=== PATIENT | male | born 1975 | race Caucasian/White ===

== ENCOUNTER 2019-01-09 20:41 | Inpatient (IN) | payer OTHER ==
--- NOTE | 2019-01-09 20:54 | Emergency Department Report ---
Blank Doc - Documentation Documentation: 43-year-old male that presents with abdominal pain with nausea. This initial assessment/diagnostic orders/clinical plan/treatment(s) is/are subject to change based on patient's health status, clinical progression and re- assessment by fellow clinical providers in the ED. Further treatment and workup at subsequent clinical providers discretion. Patient/guardians urged not to elope from the ED as their condition may be serious if not clinically assessed and managed. Initial orders include: 1- Patient sent to [facility] for further evaluation and treatment 2- labs 3- UA
[2019-01-09 21:36] LABS: Basophils % (Auto) 0.2 % (0.0-1.8); Hematocrit 45.5 % (35.5-45.6); Hemoglobin 15.4 gm/dl (11.8-15.2); Lymphocytes % (Auto) 6.2 % (13.4-35.0); Mean Corpuscular HGB Conc 34 % (32-34); Mean Corpuscular Volume 94 fl (84-94); Monocytes # (Auto) 0.9 K/mm3 (0.0-0.8); Monocytes % (Auto) 5.2 % (0.0-7.3); Platelet Count 244 K/mm3 (140-440); Red Blood Count 4.86 M/mm3 (3.65-5.03)
[2019-01-09 21:46] LABS: Alanine Aminotransferase 71 units/L (7-56); BUN/Creatinine Ratio 8; Blood Urea Nitrogen 5 mg/dL (9-20); Calcium 8.4 mg/dL (8.4-10.2); Hemolysis Index 13
[2019-01-09] MEDS ORDERED: HYDROmorphone 1 MG/1 ML INJ ONE (22:28)
[2019-01-09] MEDS ORDERED: ONDANSETRON 4 MG/2 ML INJ ONE (22:28)
[2019-01-09] MEDS ORDERED: HYDROmorphone 1 MG/1 ML INJ IV ONE (22:29)
[2019-01-09] MEDS ORDERED: ONDANSETRON 4 MG/2 ML INJ IV ONE (22:30)
[2019-01-09] MEDS ORDERED: SODIUM CHLORIDE 0.9% 1000 ML 1,000 ML ONE (22:37)
[2019-01-09] MEDS ORDERED: SODIUM CHLORIDE 0.9% 1000 ML 1,000 ML IV ONE (22:38)
--- NOTE | 2019-01-09 22:39 | Emergency Department Report ---
ED Abdominal Pain HPI - General Chief Complaint: Abdominal Pain Stated Complaint: STOMACH PAIN Time Seen by Provider: 01/09/19 20:53 Source: patient Mode of arrival: Ambulatory Limitations: No Limitations - History of Present Illness Initial Comments: Patient is a 43-year-old male that presents to the emergency room with complaints of epigastric pain. Patient states the pain started a week ago. Patient states the pain is worsening.. Patient states he drinks daily. Patient states that he has had bouts of nausea without vomiting. Patient states the pain as a 10 out of 10. Patient states the pain is radiating to his umbilical region. Patient states he thinks his bouts of nausea or from drinking too much. Patient states his pain is worse with food and movement. Patient states his pain is better with rest. Patient denies fever and chills. Patient denies diarrhea. Patient denies blood in his vomitus. Patient denies blood in his stool. Patient denies dark or black stool MD Complaint: abdominal pain -: Sudden Location: epigastric Radiation: other (umbilical) Migration to: no migration Severity: severe Severity scale (0 -10): 9 Quality: stabbing Consistency: constant Improves With: rest Worsens With: eating, movement Context: other (regular alcohol use. ) Associated Symptoms: nausea. denies: vomiting, diarrhea, fever, chills, constipation, dysuria, hematemesis, hematochezia, melena, hematuria, anorexia, syncope Treatments Prior to Arrival: antacids - Related Data Allergies Allergy/AdvReac Type Severity Reaction Status Date / Time No Known Allergies Allergy Unverified 01/09/19 20:57 ED Review of Systems ROS: Stated complaint: STOMACH PAIN Other details as noted in HPI Constitutional: denies: chills, fever Eyes: denies: eye pain, eye discharge, vision change ENT: denies: ear pain, throat pain Respiratory: denies: cough, shortness of breath, wheezing Cardiovascular: denies: chest pain, palpitations Endocrine: no symptoms reported Gastrointestinal: abdominal pain, nausea. denies: vomiting, diarrhea Genitourinary: denies: urgency, dysuria Musculoskeletal: denies: back pain, joint swelling, arthralgia Skin: denies: rash, lesions Neurological: denies: headache, weakness, paresthesias Psychiatric: denies: anxiety, depression Hematological/Lymphatic: denies: easy bleeding, easy bruising ED Past Medical Hx - Past Medical History Previous Medical History?: No - Surgical History Past Surgical History?: No - Family History Family history: no significant - Social History Smoking Status: Current Some Day Smoker Substance Use Type: Alcohol, Cocaine ED Physical Exam - General Limitations: No Limitations General appearance: alert, in no apparent distress - Head Head exam: Present: atraumatic, normocephalic - Eye Eye exam: Present: normal appearance - ENT ENT exam: Present: mucous membranes moist - Neck Neck exam: Present: normal inspection - Respiratory Respiratory exam: Present: normal lung sounds bilaterally. Absent: respiratory distress, wheezes, rales - Cardiovascular Cardiovascular Exam: Present: regular rate, normal rhythm. Absent: systolic murmur, diastolic murmur, rubs, gallop - GI/Abdominal GI/Abdominal exam: Present: soft, tenderness (epigastric tenderness), normal bowel sounds - Rectal Rectal exam: Present: deferred - Extremities Exam Extremities exam: Present: normal inspection - Back Exam Back exam: Present: normal inspection - Neurological Exam Neurological exam: Present: alert, oriented X3 - Psychiatric Psychiatric exam: Present: normal affect, normal mood - Skin Skin exam: Present: warm, dry, intact, normal color. Absent: rash ED Course Vital Signs 01/09/19 01/09/19 01/09/19 20:45 20:49 20:55 Temperature 97.5 F L Pulse Rate 92 H 90 Respiratory 17 48 H 20 Rate Blood Pressure 119/79 Blood Pressure 106/68 [Right] O2 Sat by Pulse 98 99 99 Oximetry 01/09/19 01/10/19 01/10/19 22:23 00:10 02:20 Temperature 98.3 F Pulse Rate 97 H 111 H 102 H Respiratory 24 20 22 Rate Blood Pressure Blood Pressure 124/82 138/89 129/79 [Right] O2 Sat by Pulse 99 98 98 Oximetry - Reevaluation(s) Reevaluation #1: I discussed all results with patient. Discussed plan of care patient. Patient agrees with plan of care. Patient was admitted to the hospitalist service. 01/10/19 01:06 - Consultations Consultation #1: Gen. surgery paged. 01/10/19 00:35 I discussed case with Dr. Grayson and she recommends admission and nothing by mouth. Dr. Grayson states that they patient is going to the operating room and to have the patient admitted to the hospitalist service. 01/10/19 00:51 Consultation #2: Hospitalist consult for admission. Hospitalist to admit patient. 01/10/19 00:52 ED Medical Decision Making - Lab Data Result diagrams: 01/09/19 21:13 01/09/19 21:13 - EKG Data -: EKG Interpreted by Me EKG shows normal: sinus rhythm, axis, intervals, QRS complexes, ST-T waves Rate: tachycardia - Radiology Data Radiology results: report reviewed CT ABDOMEN AND PELVIS WITH IV CONTRAST INDICATION: abd pain. Epigastric pain COMPARISON: None available. TECHNIQUE: Axial CT images were obtained through the abdomen and pelvis after 100 mL IV contrast. All CT scans at this location are performed using CT dose reduction for ALARA by means of automated exposure control. FINDINGS -- ABDOMEN: Lung Bases: No acute abnormality. Liver: Fatty liver. Gallbladder: Normal. Bile Ducts: Normal. Pancreas: Normal. Spleen: Normal. Adrenals: Normal. Right Kidney and Proximal Ureter: Normal. Left Kidney and Proximal Ureter: Normal. Stomach and Bowel: Severe mucosal thickening of the distal gastric antrum with possible focal ulcer involving the first portion of the duodenum.. Lymph Nodes: No significant adenopathy. Aorta: No significant abnormality. IVC: Normal. Additional Findings: Moderate free air.. FINDINGS -- PELVIS: Urinary Bladder and Distal Ureters: Normal. Reproductive Organs: No acute abnormality. Appendix: Normal. Bowel: No acute abnormality. Free Fluid: Small. Lymph Nodes: No significant adenopathy. Additional Findings: None. Skeletal System: No acute abnormality. IMPRESSION: Perforated ulcer identified involving the distal gastric antrum/proximal d uodenal region with moderate free air and moderate surrounding gastritis. - Medical Decision Making Patient is a 43-year-old male that presents emergency room complaints of epigastric pain. Patient found to have a ruptured gastric ulcer with gastritis. Gen. surgery consultation and is taking the patient directly to the operating room. Hospitalist consulted for admission. Patient 7 unremarkable except for elevated LFTs and elevated WBC. Patient given fluids and antibiotics and placed on a Protonix drip and pain meds. Patient's pain controlled while in the ER. - Differential Diagnosis gastritis. Epigastric pain. Ruptured ulcer. Critical Care Time: Yes Critical care time in (mins) excluding proc time.: 45 Critical care attestation.: If time is entered above; I have spent that time in minutes in the direct care of this critically ill patient, excluding procedure time. Critical Care Time: 45 minutes ED Disposition Clinical Impression: Epigastric pain Perforated gastric ulcer Qualifiers: Gastric ulcer chronicity: acute Qualified Code(s): K25.1 - Acute gastric ulcer with perforation Gastritis Qualifiers: Gastritis type: alcoholic Chronicity: acute Gastritis bleeding: with bleeding Qualified Code(s): K29.21 - Alcoholic gastritis with bleeding Disposition: 09 OP ADMIT IP TO THIS HOSP Is pt being admited?: Yes Does the pt Need Aspirin: No Condition: Critical Time of Disposition: 01:07
--- NOTE | 2019-01-10 00:18 | Cat Scan Report ---
CT ABDOMEN AND PELVIS WITH IV CONTRAST INDICATION: abd pain. Epigastric pain COMPARISON: None available. TECHNIQUE: Axial CT images were obtained through the abdomen and pelvis after 100 mL IV contrast. All CT scans a t this location are performed using CT dose reduction for ALARA by means of automated exposure contro l. FINDINGS -- ABDOMEN: Lung Bases: No acute abnormality. Liver: Fatty liver. Gallbladder: Normal. Bile Ducts: Normal. Pancreas: Normal. Spleen: Normal. Adrenals: Normal. Right Kidney and Proximal Ureter: Normal. Left Kidney and Proximal Ureter: Normal. Stomach and Bowel: Severe mucosal thickening of the distal gastric antrum with possible focal ulcer i nvolving the first portion of the duodenum.. Lymph Nodes: No significant adenopathy. Aorta: No significant abnormality. IVC: Normal. Additional Findings: Moderate free air.. FINDINGS -- PELVIS: Urinary Bladder and Distal Ureters: Normal. Reproductive Organs: No acute abnormality. Appendix: Normal. Bowel: No acute abnormality. Free Fluid: Small. Lymph Nodes: No significant adenopathy. Additional Findings: None. Skeletal System: No acute abnormality. IMPRESSION: Perforated ulcer identified involving the distal gastric antrum/proximal duodenal region with moderat e free air and moderate surrounding gastritis. Signer Name: Mikael Storey MD Signed: 01/10/2019 12:13 AM Workstation Name: [employer]
[2019-01-10] MEDS ORDERED: PIPERACIL/TAZOBACTA 4.5/NS 100 4.5 GM/100 ML VIAL IV ONE (00:48)
[2019-01-10] MEDS ORDERED: PANTOPRAZOLE 80 MG in SODIUM CHLORIDE 0.9% 100 ML IV SCH (01:00)
[2019-01-10] MEDS ORDERED: LORazepam 2 MG/ML VIAL IV PRN ×3 (01:14→11:19)
[2019-01-10] MEDS ORDERED: SODIUM CHLORIDE 0.9% 1000 ML 1,000 ML IV SCH ×2 (01:15→01:30)
--- NOTE | 2019-01-10 01:17 | History and Physical Report ---
History of Present Illness Date of examination: 01/10/19 History of present illness: 43 year old man with history of alcohol abuse comes to emergency room for evaluation of abdominal pain that started 2 weeks ago. Pain is diffuse, dull, was intermittent but now constant, intensity 9/10, no radiation, cannot identified exacerbating factor. Admits to nausea, vomiting, decreased oral intake vomiting. Denies NSAID use, blood in stool, hematemesis. Last drink was today. Patient is being admitted for perforated ulcer Review Of Systems: Constitutional: no weight loss, fever, chills Ears, eyes, nose, mouth and throat: no nasal congestion, no nasal discharge, no sinus pressure, blurry vision, diplopia Neck: No neck pain or rigidity. Cardiovascular: No palpitations, chest pain Respiratory: No shortness of breath, cough Gastrointestinal: No hematochezia Genitourinary : no dysuria, frequency Musculoskeletal: no muscle ache , joint pain Integumentary: no rash, no pruritis Neurological: no parathesias, focal weakness Endocrine: no cold or heat intolerance, no polyuria or polydipsia Hematologic/Lymphatic: no easy bruising, no easy bleeding, no gland swelling Allergic/Immunologic: no urticaria, no angioedema. PAST MEDICAL HISTORY: alcohol abuse PAST SURGICAL HISTORY:finger SOCIAL HISTORY: Derinks 12 beers/day, +tobacco, +cocoaine FAMILY HISTORY: Hypertension Medications and Allergies Allergies Allergy/AdvReac Type Severity Reaction Status Date / Time No Known Allergies Allergy Unverified 01/09/19 20:57 Active Meds: Active Medications Pantoprazole Sodium 80 mg/ (Sodium Chloride) 100 mls @ 10 mls/hr IV DIRECT GERALD Sodium Chloride (Nacl 0.9% 1000 Ml) 1,000 mls @ 125 mls/hr IV DIRECT GERALD Piperacillin Sod/Tazobactam Sod (Zosyn/Ns 4.5gm/100ml) 4.5 gm in 100 mls @ 200 mls/hr IV Q8HR GERALD; Protocol Sodium Chloride (Nacl 0.9% 1000 Ml) 1,000 mls @ 150 mls/hr IV DIRECT GERALD Lorazepam (Ativan) 2 mg IV Q1HR PRN PRN Reason: CIWA-Ar 8-15 Lorazepam (Ativan) 4 mg IV Q1HR PRN PRN Reason: CIWA-Ar 16-25 Exam - Physical Exam Narrative exam: Gen. appearance: Patient lying in bed, no apparent distress HEENT: Normocephalic, atraumatic, pupils equally round and reactive to light, extraocular movement intact, and no sclericterus,. No JVD or thyromegaly or nodule,neck supple, no carotid bruit ,mucous membranes moist, no exudate or erythema Heart: S1, S2, regular rate and rhythm Lungs: Crackles bilaterally, breathing comfortable Abdomen: decrease bowel sounds, tender mostly in RLQ,no rebound, guarding, nond istended, no organomegaly Extremity: no edema, cyanosis, clubbing Skin: No rash, nodules, warm, dry Neuro: speech is fluent, moves extremities, sensory intact - Constitutional Vitals: Temp Pulse Resp BP Pulse Ox 98.3 F 111 H 20 138/89 98 01/09/19 22:23 01/10/19 00:10 01/10/19 00:10 01/10/19 00:10 01/10/19 00:10 Results - Labs CBC & Chem 7: 01/10/19 06:54 01/10/19 14:40 Labs: Abnormal lab results 01/09/19 01/09/19 Range/Units 21:13 21:13 WBC 16.6 H (4.5-11.0) K/mm3 Hgb 15.4 H (11.8-15.2) gm/dl Lymph % (Auto) 6.2 L (13.4-35.0) % Lymph # 1.0 L (1.2-5.4) K/mm3 [place] # 0.9 H (0.0-0.8) K/mm3 Seg Neutrophils % 88.4 H (40.0-70.0) % Seg Neutrophils # 14.7 H (1.8-7.7) K/mm3 Carbon Dioxide 21 L (22-30) mmol/L BUN 5 L (9-20) mg/dL Creatinine 0.6 L (0.8-1.5) mg/dL Glucose 116 H (75-100) mg/dL AST 78 H (5-40) units/L ALT 71 H (7-56) units/L - Imaging and Cardiology CT scan - abdomen: report reviewed CT scan - pelvis: report reviewed Assessment and Plan Assessment Perforated ulcer Start IV fluids, Protonix drip, monitor serial hemoglobin Surgery was consulted to see the patient he is going to OR emergently SIRS secondary to perforation of ulcer Start emperic zosyn, follow cultures Alcohol Abuse Start CIWA protocol with IV ativan cessation discuss with patient, verbalize undersanding DVT prophalaxis
--- NOTE | 2019-01-10 02:13 | Consultation ---
History of Present Illness Consult date: 01/10/19 Reason for consult: abdominal pain Chief complaint: abdominal pain - History of present illness History of present illness: 43 yo M with no PMHx presents to the ER with several weeks of epigastric abdomin al pain, dull, radiating across the upper abdomen. Patient states the pain would come and go. This evening, the pain became severe which has never happened before. He was unable to walk due to pain. He is an every day beer drinker, drinking about 12 beers a day. Last ingestion of etoh was this evening. He states that drinking beer made the pain worse. He occasionally using cocaine, last use 1 week ago. He admits to nausea but no vomiting. BMs are normal without melena or hematochezia. No f/c, cp, sob. Pain is improved slightly after dilaudid IV in ER. Past History Past Medical History: No medical history Past Surgical History: Other (finger surgery) Social history: lives with family, smoking, alcohol abuse, full code, other (cocaine) Family history: no significant family history Medications and Allergies Allergies Allergy/AdvReac Type Severity Reaction Status Date / Time No Known Allergies Allergy Unverified 01/09/19 20:57 Active Meds: Active Medications Pantoprazole Sodium 80 mg/ (Sodium Chloride) 100 mls @ 10 mls/hr IV DIRECT GERALD Last Admin: 01/10/19 01:33 Dose: 8 mg/hr, 10 mls/hr Documented by: Sodium Chloride (Nacl 0.9% 1000 Ml) 1,000 mls @ 150 mls/hr IV DIRECT GERALD Last Admin: 01/10/19 01:23 Dose: 150 mls/hr Documented by: Piperacillin Sod/Tazobactam Sod (Zosyn/Ns 4.5gm/100ml) 4.5 gm in 100 mls @ 200 mls/hr IV Q8H GERALD; Protocol Lorazepam (Ativan) 2 mg IV Q1HR PRN PRN Reason: CIWA-Ar 8-15 Lorazepam (Ativan) 4 mg IV Q1HR PRN PRN Reason: CIWA-Ar 16-25 Review of Systems All systems: negative (10 pt ROS performed and negative except for that listed in HPI) Exam Vital Signs Resp Pulse Ox 17 98 01/09/19 20:45 01/09/19 20:45 Narrative exam: Gen: AAOx3. NAD ENT: No scleral icterus or conjunctival pallor CV: s1, S2+ Resp: even and unlabored Abd: soft, ND, + epigastric, RUQ and RLQ TTP. No r/r/g Ext: no c/c/e Results - Labs 01/09/19 21:13 01/09/19 21:13 Abnormal lab results 01/09/19 01/09/19 Range/Units 21:13 21:13 WBC 16.6 H (4.5-11.0) K/mm3 Hgb 15.4 H (11.8-15.2) gm/dl Lymph % (Auto) 6.2 L (13.4-35.0) % Lymph # 1.0 L (1.2-5.4) K/mm3 [place] # 0.9 H (0.0-0.8) K/mm3 Seg Neutrophils % 88.4 H (40.0-70.0) % Seg Neutrophils # 14.7 H (1.8-7.7) K/mm3 Carbon Dioxide 21 L (22-30) mmol/L BUN 5 L (9-20) mg/dL Creatinine 0.6 L (0.8-1.5) mg/dL Glucose 116 H (75-100) mg/dL AST 78 H (5-40) units/L ALT 71 H (7-56) units/L Diabetes panel 01/09/19 Range/Units 21:13 Sodium 137 (137-145) mmol/L Potassium 3.6 (3.6-5.0) mmol/L Chloride 99.7 (98-107) mmol/L Carbon Dioxide 21 L (22-30) mmol/L BUN 5 L (9-20) mg/dL Creatinine 0.6 L (0.8-1.5) mg/dL Glucose 116 H (75-100) mg/dL Calcium 8.4 (8.4-10.2) mg/dL AST 78 H (5-40) units/L ALT 71 H (7-56) units/L Alkaline Phosphatase 75 (35-129) units/L Total Protein 7.1 (6.3-8.2) g/dL Albumin 4.0 (3.9-5) g/dL Calcium panel 01/09/19 Range/Units 21:13 Calcium 8.4 (8.4-10.2) mg/dL Albumin 4.0 (3.9-5) g/dL Pituitary panel 01/09/19 Range/Units 21:13 Sodium 137 (137-145) mmol/L Potassium 3.6 (3.6-5.0) mmol/L Chloride 99.7 (98-107) mmol/L Carbon Dioxide 21 L (22-30) mmol/L BUN 5 L (9-20) mg/dL Creatinine 0.6 L (0.8-1.5) mg/dL Glucose 116 H (75-100) mg/dL Calcium 8.4 (8.4-10.2) mg/dL Adrenal panel 01/09/19 Range/Units 21:13 Sodium 137 (137-145) mmol/L Potassium 3.6 (3.6-5.0) mmol/L Chloride 99.7 (98-107) mmol/L Carbon Dioxide 21 L (22-30) mmol/L BUN 5 L (9-20) mg/dL Creatinine 0.6 L (0.8-1.5) mg/dL Glucose 116 H (75-100) mg/dL Calcium 8.4 (8.4-10.2) mg/dL Total Bilirubin 0.70 (0.1-1.2) mg/dL AST 78 H (5-40) units/L ALT 71 H (7-56) units/L Alkaline Phosphatase 75 (35-129) units/L Total Protein 7.1 (6.3-8.2) g/dL Albumin 4.0 (3.9-5) g/dL - Imaging CT scan - abdomen: report reviewed, image reviewed CT scan - pelvis: report reviewed, image reviewed Assessment and Plan 43 yo M with 1. Pneumoperitoneum likely 2/2 acute perforated gastric/duodenal ulcer 2. sepsis 2/2 #1 Plan: 1. NPO 2. IVF 3. IV abx - zosyn 4. prn pain and nausea control 5. Protonix gtt 6. type and screen 7. Recommend emergent OR for exlap to determine source of pneumoperitoneum. Based on CT imaging and patient history, this is likely due to perforated peptic ulcer. We discussed all risks, benefits, alternatives to surgery. Questions answered and consent obtained. 8. I explained to patient that his post op course could be complicated by withdrawal from etoh and drugs. He understands 9. CIWA protocol per 1' service Plan discussed with patient and family at bedside. Thank you, please call with questions.
[2019-01-10 02:15] LABS: INR 1.1 (0.87-1.13); Partial Thromboplastin Time 23.5 Sec. (24.2-36.6)
[2019-01-10] MEDS ORDERED: fentaNYL 100 MCG/2 ML INJ ONE ×3 (02:24→03:44)
[2019-01-10] MEDS ORDERED: ROCURONIUM 50 MG/5 ML INJ IV ONE (02:24)
[2019-01-10] MEDS ORDERED: PROPOFOL 200 MG/20 ML VIAL IV ONE (02:24)
[2019-01-10] MEDS ORDERED: LIDOCAINE MPF (2%) 20 MG/1 ML VIAL 5 ML ONE (02:24)
[2019-01-10] MEDS ORDERED: SUCCINYLCHOLINE CHLORIDE 200 MG/10 ML INJ MDV ONE (02:24)
--- NOTE | 2019-01-10 02:41 | Anesthesia Consultation ---
Anesthesia Consult and Med Hx Date of service: 01/10/19 - Airway Anesthetic Teeth Evaluation: Poor (reports slightly loose lower incisors and right lower molars/premolars) ROM Head & Neck: Adequate Mental/Hyoid Distance: Adequate Mallampati Class: Class II Intubation Access Assessment: Probably Good - Pulmonary Exam CTA: Yes - Cardiac Exam Cardiac Exam: RRR (tachycardic) - Pre-Operative Health Status ASA Pre-Surgery Classification: ASA3, Emergency Proposed Anesthetic Plan: General - Pulmonary Hx Smoking: Yes (occasional ) Hx Respiratory Symptoms: No - Cardiovascular System Hx Hypertension: No Hx Heart Attack/AMI: No Hx Percutaneous Transluminal Coronary Angioplasty (PTCA): No Hx Cardia Arrhythmia: No - Central Nervous System CVA: No - Gastrointestinal Hx Ulcer: Yes (ruptured peptic ulcer on imaging) - Endocrine Hx Renal Disease: No Hx Liver Disease: Yes (mild transaminitis) Hx Insulin Dependent Diabetes: No Hx Non-Insulin Dependent Diabetes: No Hx Thyroid Disease: No - Hematic Hx Anemia: No - Other Systems Hx Alcohol Use: Yes (12pk per day; last drink 01/09 1830) Hx Substance Use: Yes (last cocaine use 4-5 days ago; reports use <1x/wk) Hx Obesity: No - Additional Comments Anesthesia Medical History Comments: No prior GA. No FHx anesthetic complications. EKG: ST with normal QTc. Plan GETA/RSI. Discussed anesthetic risks given hx of cocaine and EtOH abuse. Also discussed possible post op mechanical ventilation pending intraoperative course.
[2019-01-10] MEDS ORDERED: HYDROmorphone 1 MG/1 ML INJ IV PRN (02:43)
--- NOTE | 2019-01-10 02:43 | Anesthesia Day of Surgery ---
Anesthesia Day of Surgery - Day of Surgery Patient Examined: Yes Patient H&P Reviewed: Yes Patient is NPO: Yes (solids 01/09 1500, liquids 01/10 2000; plan RSI for intra- abdominal process)
[2019-01-10] MEDS ORDERED: PHENYLEPHRINE/NS 1,000 MCG/10 ML SYRINGE (OR USE) IV ONE (03:36)
[2019-01-10] MEDS ORDERED: ONDANSETRON 4 MG/2 ML INJ ONE (03:36)
[2019-01-10] MEDS ORDERED: dexAMETHasone 20 MG/5 ML VIAL ONE (03:36)
[2019-01-10] MEDS ORDERED: METHYLENE BLUE 50 MG/10 ML AMP ONE (03:48)
[2019-01-10] MEDS ORDERED: SODIUM CHLORIDE 0.9% IRRIG SOLN 2000 ML IR ONE (04:05)
--- NOTE | 2019-01-10 04:43 | Post Operative Note ---
Pre-op diagnosis: Pneumoperitoneum, perforated peptic ulcer Post-op diagnosis: same Findings: Omentum overlying area of perforation, already sealed - no leakage Methylene blue test performed through NGT - no leakage seen Procedure: Exploratory laparotomy, peritoneal lavage Anesthesia: CHANDUA Surgeon: RENETTA BRITTON Estimated blood loss: minimal Pathology: none Condition: stable Disposition: PACU
--- NOTE | 2019-01-10 05:10 | Operative Report ---
PREOPERATIVE DIAGNOSES: Pneumoperitoneum, perforated peptic ulcer. POSTOPERATIVE DIAGNOSIS: Pneumoperitoneum, perforated peptic ulcer. FINDINGS: 1. Omentum overlying area of perforation adhered and already sealed. No leakage seen. 2. Methylene blue test performed through NG tube. No leakage seen. PROCEDURE: Exploratory laparotomy, peritoneal lavage. ANESTHESIA: General endotracheal anesthesia. SURGEON: Marta Grayson DO ESTIMATED BLOOD LOSS: Minimal. PATHOLOGY: None. CONDITION AND DISPOSITION: The patient is stable to PACU. HISTORY OF PRESENT ILLNESS AND INDICATION: The patient is a 43-year-old male with history of ETOH abuse and who presented to the Emergency Room with severe epigastric abdominal pain x 1 day. His pain had been a dull pain for the last several weeks; however, nothing as severe as today. He was found to have leukocytosis, tachycardia, pneumoperitoneum on CT scan of the abdomen and pelvis, likely related to a perforated gastric ulcer. Due to the findings, it was recommended that the patient undergo exploratory laparotomy and possible repair of the perforation. All risks, benefits and alternatives to surgery were discussed with the patient and questions answered. Consent was obtained. PROCEDURE IN DETAIL: The patient was identified in preoperative area and taken back to the operating room and placed on the operating table in supine position. After anesthesia was induced, a Qiu catheter was sterilely placed by the circulating nurse. The abdomen was then prepped and draped in the usual sterile fashion. Timeout was performed. An upper midline incision was made using a #10 blade. The dissection was carried down through skin and subcutaneous tissue using Bovie electrocautery until the fascia was encountered. The fascia was scored and the peritoneum was grasped and lifted cephalad between 2 hemostats. This was incised with Metzenbaum scissors and the abdomen was entered. The remainder of the fascial incision was opened in a cephalad and caudad direction using Bovie electrocautery. Upon initial examination of the abdomen, there was just some serosanguineous fluid seen. There was no gross contamination of the abdomen. The pelvis did have some light greenish fluid, which was clear and was suctioned out at the beginning of the case. We then started our examination of the stomach. There was an area in the antrum in the region of the pylorus that was thickened with some fibrinous exudate overlying it. There was a portion of omentum that had already adhered to this area. The duodenum distal to this was soft without any inflammation. The remainder of the abdomen was unremarkable. An NG tube was then placed by Anesthesia under direct palpation by me. Once the NG tube was positioned satisfactorily in the stomach, it was decided to perform a methylene blue test to ensure that the perforation was indeed sealed and did not require further repair. A vial of methylene blue was mixed into a 1 liter bag of saline and 60 mL of this mixture was infiltrated into the stomach via the NG tube. There was no immediate extravasation of methylene blue into the abdomen. We then proceeded to place a 19-Armenian RAFAEL drain in the area of the perforation. An incision was made in the right upper quadrant and the RAFAEL drain brought out through this incision. The RAFAEL drain was cut to size and positioned overlying the anterior portion of the stomach, pylorus and duodenum under the right lobe of the liver. At this point, it had been approximately 10 minutes since the methylene blue was instilled. The area was reexamined and there was still no methylene blue extravasating into the abdomen. The abdomen was then copiously irrigated with greater than 2 liters of warm saline. All of the irrigant returned clear. The omentum was placed in the right upper quadrant over the stomach. Hemostasis was carefully ensured before closing the abdomen. We then proceeded to closing the abdomen. The fascia was closed using running #1 looped PDS. The subcutaneous tissue was irrigated and hemostasis ensured. The skin was closed with seth. The drain was sutured into place using a 3-0 nylon drain stitch. The abdomen was cleansed and dried. A Covrsite dressing was applied to the midline incision and a 4 x 4 drain sponge was applied to the drain and secured with Tegaderm. At the end of the case, all sponge, instrument, sharp counts were correct x 2. The patient was awoken from anesthesia, extubated, and taken to PACU in stable condition. JOB# [id number] ROMULO/YOLANDE
[2019-01-10] MEDS ORDERED: PIPERACIL/TAZOBACTA 4.5/NS 100 4.5 GM/100 ML VIAL IV SCH ×2 (06:00→08:00)
[2019-01-10] MEDS ORDERED: SODIUM CHLORIDE 0.9% 1000 ML 1,000 ML ONE (06:01)
[2019-01-10] MEDS ORDERED: MORPHINE 4 MG/1 ML INJ IV PRN (06:10)
[2019-01-10 07:32] LABS: Hematocrit 40.8 % (35.5-45.6); Hemoglobin 13.9 gm/dl (11.8-15.2)
[2019-01-10] MEDS ORDERED: HEPARIN 5,000 UNIT/1 ML VIAL SUB-Q SCH (10:00)
--- NOTE | 2019-01-10 10:40 | Post Anesthesia Evaluation ---
- Post Anesthesia Evaluation Patient Participated: Yes Airway Patent: Yes Stable Respiratory Function: Yes Nausea/Vomiting: No Temp > 96.8F: Yes Pain Manageable: Yes Adequeate Hydration: Yes Anesthesia Complications: No
[2019-01-10] MEDS: D5W/0.45% NACL 1,000 ML IV SCH ×2 (12:16→21:41)
[2019-01-10] MEDS: PANTOPRAZOLE 80 MG in SODIUM CHLORIDE 0.9% 100 ML IV SCH (12:45)
[2019-01-10 15:21] LABS: BUN/Creatinine Ratio 12; Blood Urea Nitrogen 7 mg/dL (9-20); Hemolysis Index 8
[2019-01-10] MEDS: PIPERACIL/TAZOBACTA 4.5/NS 100 4.5 GM/100 ML VIAL IV SCH ×2 (15:49→20:25)
--- NOTE | 2019-01-10 16:54 | Progress Note ---
Assessment and Plan Assessment and plan: --Pneumoperitoneum, perforated peptic ulcer: s/p Exploratory laparotomy, peritoneal lavage Omentum overlying area of perforation, already sealed - no leakage Methylene blue test performed through NGT - no leakage seen IV fluids, pain management --Sepsis: Secondary to perforation of ulcer Continue emperic zosyn, follow cultures --Alcohol Abuse: Closely monitor for alcohol withdrawal symptoms Continue [facility] protocol --Chronic alcohol use; patient strongly advised to quit alcohol intake Verbalized understanding --DVT prophylaxis; Lovenox Surgery evaluation recommendations noted and appreciated Monitor clinically and adjust management as needed Advanced care 35 minutes History Interval history: Patient seen and examined medical records reviewed Patient was admitted with perforated peptic ulcer Evaluated by surgery underwent emergency Exploratory laparotomy, peritoneal lavage Omentum overlying area of perforation, already sealed - no leakage. Patient complains of some abdominal pain Vital signs noted Hospitalist Physical - Constitutional Vitals: Temp Pulse Resp BP Pulse Ox 97.5 F L 82 18 146/82 100 01/10/19 11:31 01/10/19 11:31 01/10/19 11:31 01/10/19 11:31 01/10/19 11:31 General appearance: Present: mild distress, well-nourished - EENT Eyes: Present: PERRL, EOM intact - Neck Neck: Present: supple, normal ROM - Respiratory Respiratory effort: normal Respiratory: bilateral: diminished, negative: rales, rhonchi, wheezing - Cardiovascular Rhythm: regular Heart Sounds: Present: S1 & S2 - Extremities Extremities: no ischemia, No edema - Abdominal General gastrointestinal: soft, tender (No guarding no rigidity), non-distended, absent bowel sounds - Integumentary Integumentary: Present: clear, warm - Psychiatric Psychiatric: appropriate mood/affect, cooperative - Neurologic Neurologic: CNII-XII intact, moves all extremities Results - Labs CBC & Chem 7: 01/10/19 06:54 01/10/19 14:40 Labs: Laboratory Last Values WBC 16.6 K/mm3 (4.5-11.0) H 01/09/19 21:13 RBC 4.86 M/mm3 (3.65-5.03) 01/09/19 21:13 Hgb 13.9 gm/dl (11.8-15.2) 01/10/19 06:54 Hct 40.8 % (35.5-45.6) 01/10/19 06:54 MCV 94 fl (84-94) 01/09/19 21:13 MCH 32 pg (28-32) 01/09/19 21:13 MCHC 34 % (32-34) 01/09/19 21:13 RDW 14.0 % (13.2-15.2) 01/09/19 21:13 Plt Count 244 K/mm3 (140-440) 01/09/19 21:13 Lymph % (Auto) 6.2 % (13.4-35.0) L 01/09/19 21:13 [place] % (Auto) 5.2 % (0.0-7.3) 01/09/19 21:13 Eos % (Auto) 0.0 % (0.0-4.3) 01/09/19 21:13 Baso % (Auto) 0.2 % (0.0-1.8) 01/09/19 21:13 Lymph # 1.0 K/mm3 (1.2-5.4) L 01/09/19 21:13 [place] # 0.9 K/mm3 (0.0-0.8) H 01/09/19 21:13 Eos # 0.0 K/mm3 (0.0-0.4) 01/09/19 21:13 Baso # 0.0 K/mm3 (0.0-0.1) 01/09/19 21:13 Seg Neutrophils % 88.4 % (40.0-70.0) H 01/09/19 21:13 Seg Neutrophils # 14.7 K/mm3 (1.8-7.7) H 01/09/19 21:13 PT 14.1 Sec. (12.2-14.9) 01/10/19 01:12 INR 1.10 (0.87-1.13) 01/10/19 01:12 APTT 23.5 Sec. (24.2-36.6) L 01/10/19 01:12 Sodium 138 mmol/L (137-145) 01/10/19 14:40 Potassium 4.1 mmol/L (3.6-5.0) 01/10/19 14:40 Chloride 102.5 mmol/L (98-107) 01/10/19 14:40 Carbon Dioxide 20 mmol/L (22-30) L 01/10/19 14:40 Anion Gap 20 mmol/L 01/10/19 14:40 BUN 7 mg/dL (9-20) L 01/10/19 14:40 Creatinine 0.6 mg/dL (0.8-1.5) L 01/10/19 14:40 Estimated GFR > 60 ml/min 01/10/19 14:40 BUN/Creatinine Ratio 12 % 01/10/19 14:40 Glucose 122 mg/dL (75-100) H 01/10/19 14:40 Calcium 8.0 mg/dL (8.4-10.2) L 01/10/19 14:40 Phosphorus 3.00 mg/dL (2.5-4.5) 01/10/19 14:40 Magnesium 1.80 mg/dL (1.7-2.3) 01/10/19 14:40 Total Bilirubin 0.70 mg/dL (0.1-1.2) 01/09/19 21:13 AST 78 units/L (5-40) H 01/09/19 21:13 ALT 71 units/L (7-56) H 01/09/19 21:13 Alkaline Phosphatase 75 units/L (35-129) 01/09/19 21:13 Total Protein 7.1 g/dL (6.3-8.2) 01/09/19 21:13 Albumin 4.0 g/dL (3.9-5) 01/09/19 21:13 Albumin/Globulin Ratio 1.3 % 01/09/19 21:13 Lipase 53 units/L (13-60) 01/09/19 21:13 Blood Type O POSITIVE 01/10/19 01:12 Antibody Screen Negative 01/10/19 01:12 Active Medications - Current Medications Current Medications: Generic Name Dose Route Start Last Admin Trade Name Freq PRN Reason Stop Dose Admin Dextrose/Sodium Chloride 1,000 mls @ 125 mls/hr 01/10/19 12:00 01/10/19 12:16 D5/0.45ns IV 125 mls/hr DIRECT GERALD Administration Pantoprazole Sodium 80 mg/ 100 mls @ 10 mls/hr 01/10/19 12:20 Sodium Chloride IV DIRECT GERALD 8 MG/HR Piperacillin Sod/Tazobactam Sod 4.5 gm in 100 mls @ 200 mls/hr 01/10/19 12:30 Zosyn/Ns 4.5gm/100ml IV Q8H GERALD Protocol Lorazepam 2 mg 01/10/19 11:19 Ativan IV Q1H PRN CIWA-Ar 8-15 Morphine Sulfate 2 mg 01/10/19 06:10 Morphine IV Q4H PRN Pain, Moderate (4-6) Morphine Sulfate 4 mg 01/10/19 06:10 01/10/19 12:16 Morphine IV 4 mg Q4H PRN Administration Pain , Severe (7-10)
[2019-01-10] MEDS: MORPHINE 2 MG/1 ML INJ IV PRN ×2 (18:44→22:54)
[2019-01-11] MEDS: PANTOPRAZOLE 80 MG in SODIUM CHLORIDE 0.9% 100 ML IV SCH ×2 (02:27→20:00)
[2019-01-11] MEDS: D5W/0.45% NACL 1,000 ML IV SCH (04:33)
[2019-01-11] MEDS: PIPERACIL/TAZOBACTA 4.5/NS 100 4.5 GM/100 ML VIAL IV SCH ×3 (04:34→20:30)
--- NOTE | 2019-01-11 09:09 | Fluoroscopy Report ---
UPPER GI SERIES HISTORY: Postop perforated gastric ulcer FINDINGS: A modified examination was performed with Gastrografin injected through the nasogastric tub e. 2 minutes of fluoroscopy time was utilized. 15 fluoroscopic images were saved. The images demonstr ate normal opacification of the stomach and duodenum. No obstruction or extravasation of contrast is detected. IMPRESSION: No leak is identified. Signer Name: Chandrakant Forte Jr, MD Signed: 01/11/2019 9:04 AM Workstation Name: [id number]
--- NOTE | 2019-01-11 11:21 | Progress Note ---
Assessment and Plan - Patient Problems (1) Perforated peptic ulcer Current Visit: Yes Status: Acute Plan to address problem: Pt stable. s/p ex lap with washout - 01/10 - POD#1. UGI neg for leak. Rec: 1) Remove NGT 2) Start clears. 3) CBC in Am. 4) Ambulate Please call with questions. Subjective Date of service: 01/11/19 Patient Reports: Positive: other (discomfort only at incision. Otherwise feels well. ). Negative: nausea, vomiting Objective Vital Signs - 12hr 01/11/19 01/11/19 01/11/19 00:00 05:13 07:27 Temperature 97.9 F 97.6 F 97.4 F L Pulse Rate 65 75 70 Respiratory 19 18 18 Rate Blood Pressure 108/68 106/64 124/81 O2 Sat by Pulse 98 98 100 Oximetry - General physical appearance no distress, no pain - Respiratory normal expansion, normal respiratory effort - Abdomen soft, tender (at incision only), distended (minimal), other (dressing dry. RAFAEL sero-sang) - Psychiatric oriented to time, oriented to person, oriented to place, speech is normal, memory intact - Labs 01/10/19 06:54 01/10/19 14:40 Diabetes panel 01/10/19 Range/Units 14:40 Sodium 138 (137-145) mmol/L Potassium 4.1 (3.6-5.0) mmol/L Chloride 102.5 (98-107) mmol/L Carbon Dioxide 20 L (22-30) mmol/L BUN 7 L (9-20) mg/dL Creatinine 0.6 L (0.8-1.5) mg/dL Glucose 122 H (75-100) mg/dL Calcium 8.0 L (8.4-10.2) mg/dL Calcium panel 01/10/19 Range/Units 14:40 Calcium 8.0 L (8.4-10.2) mg/dL Phosphorus 3.00 (2.5-4.5) mg/dL Pituitary panel 01/10/19 Range/Units 14:40 Sodium 138 (137-145) mmol/L Potassium 4.1 (3.6-5.0) mmol/L Chloride 102.5 (98-107) mmol/L Carbon Dioxide 20 L (22-30) mmol/L BUN 7 L (9-20) mg/dL Creatinine 0.6 L (0.8-1.5) mg/dL Glucose 122 H (75-100) mg/dL Calcium 8.0 L (8.4-10.2) mg/dL Adrenal panel 01/10/19 Range/Units 14:40 Sodium 138 (137-145) mmol/L Potassium 4.1 (3.6-5.0) mmol/L Chloride 102.5 (98-107) mmol/L Carbon Dioxide 20 L (22-30) mmol/L BUN 7 L (9-20) mg/dL Creatinine 0.6 L (0.8-1.5) mg/dL Glucose 122 H (75-100) mg/dL Calcium 8.0 L (8.4-10.2) mg/dL
--- NOTE | 2019-01-11 18:20 | Progress Note ---
Assessment and Plan Assessment and plan: --Pneumoperitoneum, perforated peptic ulcer: s/p Exploratory laparotomy, peritoneal lavage Omentum overlying area of perforation, already sealed - no leakage Methylene blue test performed through NGT - no leakage seen IV fluids, pain management Surgery started clear liquid diet as tolerated --Sepsis: Secondary to perforation of ulcer Continue emperic zosyn, follow cultures --Alcohol Abuse: No symptoms of withdrawal Continue CIWA protocol as needed --Chronic alcohol use; patient strongly advised to quit alcohol intake Verbalized understanding --DVT prophylaxis; Lovenox Surgery evaluation recommendations noted and appreciated Monitor clinically and adjust management as needed History Interval history: Patient seen and examined medical records reviewed Patient feels slightly better Complains of some pain in the surgical area Patient had abdominal x-ray this morning, Vital signs noted Hospitalist Physical - Constitutional Vitals: Temp Pulse Resp BP Pulse Ox 98.3 F 88 18 122/80 97 01/11/19 16:16 01/11/19 16:16 01/11/19 16:16 01/11/19 16:16 01/11/19 16:16 General appearance: Present: mild distress, well-nourished - EENT Eyes: Present: PERRL, EOM intact - Neck Neck: Present: supple, normal ROM - Respiratory Respiratory effort: normal Respiratory: bilateral: diminished, negative: rales, rhonchi, wheezing - Cardiovascular Rhythm: regular Heart Sounds: Present: S1 & S2 - Extremities Extremities: no ischemia, No edema - Abdominal General gastrointestinal: soft, non-tender, non-distended, normal bowel sounds - Integumentary Integumentary: Present: clear, warm - Psychiatric Psychiatric: appropriate mood/affect, cooperative - Neurologic Neurologic: CNII-XII intact, moves all extremities Results - Labs CBC & Chem 7: 01/10/19 06:54 01/10/19 14:40 Labs: Laboratory Last Values WBC 16.6 K/mm3 (4.5-11.0) H 01/09/19 21:13 RBC 4.86 M/mm3 (3.65-5.03) 01/09/19 21:13 Hgb 13.9 gm/dl (11.8-15.2) 01/10/19 06:54 Hct 40.8 % (35.5-45.6) 01/10/19 06:54 MCV 94 fl (84-94) 01/09/19 21:13 MCH 32 pg (28-32) 01/09/19 21:13 MCHC 34 % (32-34) 01/09/19 21:13 RDW 14.0 % (13.2-15.2) 01/09/19 21:13 Plt Count 244 K/mm3 (140-440) 01/09/19 21:13 Lymph % (Auto) 6.2 % (13.4-35.0) L 01/09/19 21:13 [place] % (Auto) 5.2 % (0.0-7.3) 01/09/19 21:13 Eos % (Auto) 0.0 % (0.0-4.3) 01/09/19 21:13 Baso % (Auto) 0.2 % (0.0-1.8) 01/09/19 21:13 Lymph # 1.0 K/mm3 (1.2-5.4) L 01/09/19 21:13 [place] # 0.9 K/mm3 (0.0-0.8) H 01/09/19 21:13 Eos # 0.0 K/mm3 (0.0-0.4) 01/09/19 21:13 Baso # 0.0 K/mm3 (0.0-0.1) 01/09/19 21:13 Seg Neutrophils % 88.4 % (40.0-70.0) H 01/09/19 21:13 Seg Neutrophils # 14.7 K/mm3 (1.8-7.7) H 01/09/19 21:13 PT 14.1 Sec. (12.2-14.9) 01/10/19 01:12 INR 1.10 (0.87-1.13) 01/10/19 01:12 APTT 23.5 Sec. (24.2-36.6) L 01/10/19 01:12 Sodium 138 mmol/L (137-145) 01/10/19 14:40 Potassium 4.1 mmol/L (3.6-5.0) 01/10/19 14:40 Chloride 102.5 mmol/L (98-107) 01/10/19 14:40 Carbon Dioxide 20 mmol/L (22-30) L 01/10/19 14:40 Anion Gap 20 mmol/L 01/10/19 14:40 BUN 7 mg/dL (9-20) L 01/10/19 14:40 Creatinine 0.6 mg/dL (0.8-1.5) L 01/10/19 14:40 Estimated GFR > 60 ml/min 01/10/19 14:40 BUN/Creatinine Ratio 12 % 01/10/19 14:40 Glucose 122 mg/dL (75-100) H 01/10/19 14:40 Calcium 8.0 mg/dL (8.4-10.2) L 01/10/19 14:40 Phosphorus 3.00 mg/dL (2.5-4.5) 01/10/19 14:40 Magnesium 1.80 mg/dL (1.7-2.3) 01/10/19 14:40 Total Bilirubin 0.70 mg/dL (0.1-1.2) 01/09/19 21:13 AST 78 units/L (5-40) H 01/09/19 21:13 ALT 71 units/L (7-56) H 01/09/19 21:13 Alkaline Phosphatase 75 units/L (35-129) 01/09/19 21:13 Total Protein 7.1 g/dL (6.3-8.2) 01/09/19 21:13 Albumin 4.0 g/dL (3.9-5) 01/09/19 21:13 Albumin/Globulin Ratio 1.3 % 01/09/19 21:13 Lipase 53 units/L (13-60) 01/09/19 21:13 Blood Type O POSITIVE 01/10/19 01:12 Antibody Screen Negative 01/10/19 01:12 Active Medications - Current Medications Current Medications: Generic Name Dose Route Start Last Admin Trade Name Freq PRN Reason Stop Dose Admin Acetaminophen/Hydrocodone Bitart 1 each 01/11/19 11:21 [place] 5/325 PO Q6H PRN Pain, Moderate (4-6) Pantoprazole Sodium 80 mg/ 100 mls @ 10 mls/hr 01/10/19 12:20 01/11/19 02:27 Sodium Chloride IV 8 mg/hr DIRECT GERALD 10 mls/hr Administration 8 MG/HR Piperacillin Sod/Tazobactam Sod 4.5 gm in 100 mls @ 200 mls/hr 01/10/19 12:30 01/11/19 12:45 Zosyn/Ns 4.5gm/100ml IV 200 mls/hr Q8H GERALD Administration Protocol Lorazepam 2 mg 01/10/19 11:19 Ativan IV Q1H PRN CIWA-Ar 8-15 Morphine Sulfate 2 mg 01/10/19 06:10 01/10/19 22:54 Morphine IV 2 mg Q4H PRN Administration Pain, Moderate (4-6) Morphine Sulfate 4 mg 01/10/19 06:10 01/10/19 12:16 Morphine IV 4 mg Q4H PRN Administration Pain , Severe (7-10)
[2019-01-11] MEDS: HYDROcodone/ACETAMINOPHEN 5-325 MG TAB PO PRN (21:33)
[2019-01-12] MEDS: PIPERACIL/TAZOBACTA 4.5/NS 100 4.5 GM/100 ML VIAL IV SCH ×3 (04:30→20:45)
[2019-01-12 06:24] LABS: Basophils % (Auto) 0.4 % (0.0-1.8); Eosinophils # (Auto) 0.1 K/mm3 (0.0-0.4); Eosinophils % (Auto) 1.1 % (0.0-4.3); Hematocrit 40.8 % (35.5-45.6); Hemoglobin 13.7 gm/dl (11.8-15.2); Lymphocytes # (Auto) 1.3 K/mm3 (1.2-5.4); Lymphocytes % (Auto) 26.6 % (13.4-35.0); Mean Corpuscular HGB Conc 34 % (32-34); Mean Corpuscular Volume 94 fl (84-94); Monocytes # (Auto) 0.5 K/mm3 (0.0-0.8); Platelet Count 165 K/mm3 (140-440); Red Blood Count 4.33 M/mm3 (3.65-5.03); Red Cell Distribution Width 13.9 % (13.2-15.2)
--- NOTE | 2019-01-12 08:01 | Progress Note ---
Assessment and Plan Assessment and plan: --Pneumoperitoneum, perforated peptic ulcer: s/p Exploratory laparotomy, peritoneal lavage Omentum overlying area of perforation, already sealed - no leakage Methylene blue test performed through NGT - no leakage seen IV fluids, pain management NG tube is out , surgery advanced the diet to full liquids --Sepsis: Secondary to perforation of ulcer Continue emperic zosyn, --Alcohol Abuse: No symptoms of withdrawal Continue [facility] protocol as needed --Chronic alcohol use; patient strongly advised to quit alcohol intake Verbalized understanding --DVT prophylaxis; Lovenox Out of bed to chair and ambulate as tolerated Possible discharge 1 to 2 days if stable Discussed with surgeon Dr. Olsen Plan of care reviewed with the patient and the nurse History Interval history: Patient seen and examined today medical records reviewed Patient's NG tube is out and tolerating clear liquids, surgery advance to full liquids today Patient feels better denies any nausea vomiting Vital signs noted Hospitalist Physical - Constitutional Vitals: Temp Pulse Resp BP Pulse Ox 97.6 F 72 17 115/86 99 01/12/19 04:46 01/12/19 04:46 01/12/19 04:46 01/12/19 04:46 01/12/19 04:46 General appearance: Present: no acute distress, well-nourished - EENT Eyes: Present: PERRL, EOM intact - Neck Neck: Present: supple, normal ROM - Respiratory Respiratory effort: normal Respiratory: bilateral: diminished, negative: rales, rhonchi, wheezing - Cardiovascular Rhythm: regular Heart Sounds: Present: S1 & S2 - Extremities Extremities: no ischemia, No edema - Abdominal General gastrointestinal: soft, non-tender, non-distended, normal bowel sounds - Integumentary Integumentary: Present: clear, warm - Psychiatric Psychiatric: appropriate mood/affect, cooperative - Neurologic Neurologic: CNII-XII intact, moves all extremities Results - Labs CBC & Chem 7: 01/12/19 05:56 01/10/19 14:40 Labs: Laboratory Last Values WBC 5.0 K/mm3 (4.5-11.0) 01/12/19 05:56 RBC 4.33 M/mm3 (3.65-5.03) 01/12/19 05:56 Hgb 13.7 gm/dl (11.8-15.2) 01/12/19 05:56 Hct 40.8 % (35.5-45.6) 01/12/19 05:56 MCV 94 fl (84-94) 01/12/19 05:56 MCH 32 pg (28-32) 01/12/19 05:56 MCHC 34 % (32-34) 01/12/19 05:56 RDW 13.9 % (13.2-15.2) 01/12/19 05:56 Plt Count 165 K/mm3 (140-440) 01/12/19 05:56 Lymph % (Auto) 26.6 % (13.4-35.0) 01/12/19 05:56 [place] % (Auto) 10.0 % (0.0-7.3) H 01/12/19 05:56 Eos % (Auto) 1.1 % (0.0-4.3) 01/12/19 05:56 Baso % (Auto) 0.4 % (0.0-1.8) 01/12/19 05:56 Lymph # 1.3 K/mm3 (1.2-5.4) 01/12/19 05:56 [place] # 0.5 K/mm3 (0.0-0.8) 01/12/19 05:56 Eos # 0.1 K/mm3 (0.0-0.4) 01/12/19 05:56 Baso # 0.0 K/mm3 (0.0-0.1) 01/12/19 05:56 Seg Neutrophils % 61.9 % (40.0-70.0) 01/12/19 05:56 Seg Neutrophils # 3.1 K/mm3 (1.8-7.7) 01/12/19 05:56 PT 14.1 Sec. (12.2-14.9) 01/10/19 01:12 INR 1.10 (0.87-1.13) 01/10/19 01:12 APTT 23.5 Sec. (24.2-36.6) L 01/10/19 01:12 Sodium 138 mmol/L (137-145) 01/10/19 14:40 Potassium 4.1 mmol/L (3.6-5.0) 01/10/19 14:40 Chloride 102.5 mmol/L (98-107) 01/10/19 14:40 Carbon Dioxide 20 mmol/L (22-30) L 01/10/19 14:40 Anion Gap 20 mmol/L 01/10/19 14:40 BUN 7 mg/dL (9-20) L 01/10/19 14:40 Creatinine 0.6 mg/dL (0.8-1.5) L 01/10/19 14:40 Estimated GFR > 60 ml/min 01/10/19 14:40 BUN/Creatinine Ratio 12 % 01/10/19 14:40 Glucose 122 mg/dL (75-100) H 01/10/19 14:40 Calcium 8.0 mg/dL (8.4-10.2) L 01/10/19 14:40 Phosphorus 3.00 mg/dL (2.5-4.5) 01/10/19 14:40 Magnesium 1.80 mg/dL (1.7-2.3) 01/10/19 14:40 Total Bilirubin 0.70 mg/dL (0.1-1.2) 01/09/19 21:13 AST 78 units/L (5-40) H 01/09/19 21:13 ALT 71 units/L (7-56) H 01/09/19 21:13 Alkaline Phosphatase 75 units/L (35-129) 01/09/19 21:13 Total Protein 7.1 g/dL (6.3-8.2) 01/09/19 21:13 Albumin 4.0 g/dL (3.9-5) 01/09/19 21:13 Albumin/Globulin Ratio 1.3 % 01/09/19 21:13 Lipase 53 units/L (13-60) 01/09/19 21:13 Blood Type O POSITIVE 01/10/19 01:12 Antibody Screen Negative 01/10/19 01:12 Active Medications - Current Medications Current Medications: Generic Name Dose Route Start Last Admin Trade Name Freq PRN Reason Stop Dose Admin Acetaminophen/Hydrocodone Bitart 1 each 01/11/19 11:21 01/11/19 21:33 [place] 5/325 PO 1 each Q6H PRN Administration Pain, Moderate (4-6) Pantoprazole Sodium 80 mg/ 100 mls @ 10 mls/hr 01/10/19 12:20 01/11/19 20:00 Sodium Chloride IV 8 mg/hr DIRECT GERALD 10 mls/hr Administration 8 MG/HR Piperacillin Sod/Tazobactam Sod 4.5 gm in 100 mls @ 200 mls/hr 01/10/19 12:30 01/12/19 04:30 Zosyn/Ns 4.5gm/100ml IV 200 mls/hr Q8H GERALD Administration Protocol Lorazepam 2 mg 01/10/19 11:19 Ativan IV Q1H PRN CIWA-Ar 8-15 Morphine Sulfate 2 mg 01/10/19 06:10 01/10/19 22:54 Morphine IV 2 mg Q4H PRN Administration Pain, Moderate (4-6) Morphine Sulfate 4 mg 01/10/19 06:10 01/10/19 12:16 Morphine IV 4 mg Q4H PRN Administration Pain , Severe (7-10)
[2019-01-12] MEDS: PANTOPRAZOLE 80 MG in SODIUM CHLORIDE 0.9% 100 ML IV SCH ×2 (09:23→19:11)
--- NOTE | 2019-01-12 09:44 | Progress Note ---
Assessment and Plan - Patient Problems (1) Perforated peptic ulcer Current Visit: Yes Status: Acute Plan to address problem: Pt stable. s/p ex lap with washout - 01/10 - POD#2. UGI neg for leak. Rec: 1) Advance to full liquid diet 2) Possible d/c home tomorrow if full liquid diet tolerated today. 3) Remove drain at time of discharge. Please call with questions. Subjective Date of service: 01/12/19 Patient Reports: Positive: no new complaints, feels better, tolerating liquids well Objective Vital Signs - 12hr 01/12/19 01/12/19 01/12/19 00:00 04:46 07:12 Temperature 97.7 F 97.6 F 98.2 F Pulse Rate 78 72 67 Respiratory 17 17 16 Rate Blood Pressure 116/83 115/86 122/83 O2 Sat by Pulse 96 99 99 Oximetry - General physical appearance no distress, no pain - Respiratory normal expansion, normal respiratory effort - Abdomen soft, not tender, not guarding, not rigid, other (RAFAEL with serosang drainage. Incision C/D/I) - Integumentary no rash, no growths, no abnormal pigmentation - Psychiatric oriented to time, oriented to person, oriented to place, speech is normal, memory intact - Labs 01/12/19 05:56 01/10/19 14:40
[2019-01-12] MEDS ORDERED: SODIUM CHLORIDE 0.9% 250ML 250 ML ONE (12:50)
[2019-01-13] MEDS: PIPERACIL/TAZOBACTA 4.5/NS 100 4.5 GM/100 ML VIAL IV SCH ×2 (03:58→13:00)
--- NOTE | 2019-01-13 11:44 | Progress Note ---
Assessment and Plan - Patient Problems (1) Perforated peptic ulcer Current Visit: Yes Status: Acute Plan to address problem: Pt stable. s/p ex lap with washout - 01/10 - POD#3. UGI neg for leak. RAFAEL drain removed today Rec: 1) Stay on full liquid diet for 1 week 2) Ok to d/c home from my perspective 3) f/u with Dr. Grayson in 1 week 4) May shower tomorrow. Pat dry wounds 5) no heavy lifting. Please call with questions. Subjective Date of service: 01/13/19 Patient Reports: Positive: no new complaints, feels better, tolerating liquids well, flatus, no bowel movement Objective Vital Signs - 12hr 01/12/19 01/12/19 01/13/19 23:45 23:46 05:24 Temperature 98.0 F Pulse Rate 72 73 67 Respiratory 16 18 Rate Blood Pressure 123/81 124/84 O2 Sat by Pulse 97 97 97 Oximetry 01/13/19 05:25 Temperature 97.9 F Pulse Rate Respiratory Rate Blood Pressure O2 Sat by Pulse Oximetry - General physical appearance no distress, no pain - Respiratory normal expansion, normal respiratory effort - Abdomen soft, tender (incisional), not guarding, not rigid, other (Rafael with minimal serosang drainage) - Integumentary no rash, no growths, no abnormal pigmentation - Psychiatric oriented to time, oriented to person, oriented to place, speech is normal, memory intact - Labs 01/12/19 05:56 01/10/19 14:40
--- NOTE | 2019-01-13 12:47 | Discharge Summary ---
Providers - Providers Date of Admission: 01/10/19 01:58 Date of discharge: 01/13/19 Attending physician: ANGEL PINEDO 01/10/19 01:05 Consult to Physician [CONS] Stat Comment: Dr. Holley spoke with Dr. Britton @ 0044 Consulting Provider: RENETTA BRITTON Physician Instructions: Reason For Exam: perf ulcer Primary care physician: [facility] Hospitalization Reason for admission: abdominal pain pain/perforation of peptic ulcer/sepsis Condition: Fair Pertinent studies: CT abdomen and pelvis Upper GI series Procedures: s/p Exploratory laparotomy, peritoneal lavage Hospital course: 43 yo M with no PMHx presents to the ER with several weeks of epigastric abdominal pain, dull, radiating across the upper abdomen. Patient states the pain would come and go. This evening, the pain became severe which has never happened before. He was unable to walk due to pain. He is an every day beer drinker, drinking about 12 beers a day. Last ingestion of etoh was this evening. He states that drinking beer made the pain worse. He occasionally using cocaine , last use 1 week ago. He admits to nausea but no vomiting. BMs are normal without melena or hematochezia. No f/c, cp, sob. Pain is improved slightly after dilaudid IV in ER. , Workup in the ER at CT abdomen and pelvis findings consistent No multiple Nila likely secondary to acute perforation of gastric duodenal ulcer with sepsis Surgery evaluated the patient underwent emergent expiratory treat laparotomy and peritoneal lavage Omentum overlying a few off perforation seen with no leakage. Patient had uncomplicated postop pediatric, initially had NG tube within 2 standard. Gradually started on clear liquids NG tube removed Today patient is comfortable tolerating full liquids, drains removed Patient ambulated, cleared by surgery And is being discharged home postop instructions And follow-up in the office per schedule Patient was hemodynamically and clinically stable for discharge Discharge diagnosis: --Pneumoperitoneum, perforated peptic ulcer: s/p Exploratory laparotomy, peritoneal lavage Omentum overlying area of perforation, already sealed - no leakage Methylene blue test performed through NGT - no leakage seen IV fluids, pain management NG tube is out , surgery advanced the diet to full liquids --Sepsis: Secondary to perforation of ulcer Continue emperic zosyn, --Alcohol Abuse: No symptoms of withdrawal Continue CIWA protocol as needed --Chronic alcohol use; patient strongly advised to quit alcohol intake Verbalized understanding --DVT prophylaxis; Lovenox Stable to discharge Disposition: DC-01 TO HOME OR SELFCARE Time spent for discharge: 32 min Core Measure Documentation - Palliative Care Palliative Care/ Comfort Measures: Not Applicable - Core Measures Any of the following diagnoses?: none Exam - Constitutional Vitals: Temp Pulse Resp BP Pulse Ox 97.9 F 67 18 124/84 97 01/13/19 05:25 01/13/19 05:24 01/13/19 05:24 01/13/19 05:24 01/13/19 05:24 General appearance: Present: no acute distress, well-nourished - EENT Eyes: Present: PERRL, EOM intact - Neck Neck: Present: supple, normal ROM - Respiratory Respiratory effort: normal Respiratory: negative: rales, rhonchi, wheezing - Cardiovascular Rhythm: regular Heart Sounds: Present: S1 & S2 - Extremities Extremities: no ischemia, No edema - Abdominal General gastrointestinal: Present: soft, non-tender, non-distended, normal bowel sounds - Integumentary Integumentary: Present: clear, warm - Musculoskeletal Musculoskeletal: strength equal bilaterally - Psychiatric Psychiatric: appropriate mood/affect, cooperative - Neurologic Neurologic: CNII-XII intact, moves all extremities Plan Diet: other (full liquid diet for 1 week) Additional Instructions: -Stay on full liquid diet for 1 week. - f/u with Dr. Britton in 1 week. -May shower tomorrow. Pat dry wounds. -no heavy lifting. Follow up with: PRIMARY CAREMD [Primary Care Provider] - 7 Days RENETTA BRITTON DO [Staff Physician] - 7 Days Prescriptions: HYDROcodone/APAP 5-325 [[place] 5-325 mg TAB] 1 each PO BID PRN #8 tablet PRN Reason: Pain, Moderate (4-6) Pantoprazole [Protonix] 40 mg PO QDAY #30 tablet
[2019-01-13 12:51] VITALS: BP 110/85
[2019-01-13] MEDS: HYDROcodone/ACETAMINOPHEN 5-325 MG TAB PO PRN (16:57)
== END 2019-01-13 18:50 | disposition home or self-care (01) | DRG 853 ==
LOC: ED 20:41 → CC1 01-10 01:58 → 3B-SURG 01-10 05:04
PROVIDERS: ADMIT Internal Medicine; ATTEND Internal Medicine
PROC: 0W9G0ZZ Drainage of Peritoneal Cavity, Open Approach (ICD-10-PCS; principal; 2019-01-10)
DX: A41.9 Sepsis, unspecified organism (principal); K29.21 Alcoholic gastritis with bleeding; K25.1 Acute gastric ulcer with perforation; F14.90 Cocaine use, unspecified, uncomplicated; F17.200 Nicotine dependence, unspecified, uncomplicated; K66.8 Other specified disorders of peritoneum; F17.210 Nicotine dependence, cigarettes, uncomplicated; F10.10 Alcohol abuse, uncomplicated; Y90.9 Presence of alcohol in blood, level not specified; Z82.49 Family history of ischemic heart disease and other diseases of the circulatory system; Z71.6 Tobacco abuse counseling
CPT/HCPCS: 36415; 74177; 74241; 80048; 80053; 83690; 83735; 84100; 85014; 85018; 85025; 85610; 85730; 86850; 86900; 86901; 93005; 93010; 96360; 99406; G0378; A4217; C9113; J0330; J1100; J1170; J2270; J2370; J2405; J2543; J2704; J3010; J7030; J7050; Q9963; Q9967; Q9968